=== PATIENT | female | born 1970 | race Two or more races ===

== ENCOUNTER 2017-01-14 16:01 | Emergency (ER) | payer MEDICAID, OTHER ==
[~2017-01-14] VITALS: Ht 154.9 cm; Wt 68.5 kg
[~2017-01-14 16:01] MED LIST: ALBUTEROL SULF8.5 GM INH; AZITHROMYCIN250 MG ORAL; FLAGYL500 MG ORAL; IBUPROFEN600 MG ORAL; LEVAQUIN500 MG ORAL; MEDROL DOSEPAK4 MG ORAL; METRONIDAZOLE500 MG ORAL; NKM; PROMETHAZINE-C118 M1 ORAL
[2017-01-14 16:30] VITALS: BP 175/106
[2017-01-14] MEDS ORDERED: Morphine Sulfate 4mg/ml Inj IVP ONE (16:45)
[2017-01-14] MEDS ORDERED: Ketorolac 30mg Inj IV ONE (16:45)
[2017-01-14 17:07] LABS: APPEARANCE,URINE CLOUDY; KETONES,URINE NEGATIVE (NEGATIVE); LEUKOCYTE ESTERASE ,URINE 1+ (NEGATIVE); NITRITE,URINE NEGATIVE (NEGATIVE); PH,URINE 5 (4.5-8.0); PROTEIN,URINE 2+ (NEGATIVE); UROBILINOGEN,URINE NORMAL MG/DL (0.0-1.0)
[2017-01-14 17:09] LABS: BASOPHILS % (AUTO) 1.2 % (0.0-2.0); EOSINOPHILS % (AUTO) 2.3 % (0.0-3.0); LYMPHOCYTES % (AUTO) 26.5 % (20.0-45.0); MEAN CORPUSCULAR HEMOGLOBIN 30.7 PG (27.0-31.0); MEAN CORPUSCULAR HGB CONC 33.1 G/DL (32.0-36.0); MEAN CORPUSCULAR VOLUME 93 FL (80-99); MEAN PLATELET VOLUME 6.9 FL (6.5-10.1); MONOCYTES % (AUTO) 5.1 % (1.0-10.0); NEUTROPHILS % (AUTO) 64.9 % (45.0-75.0); PLATELET COUNT 437 K/UL (150-450); RED BLOOD COUNT 4.67 M/UL (4.20-5.40); RED CELL DISTRIBUTION WIDTH 12.2 % (11.6-14.8); WHITE BLOOD COUNT 9.3 K/UL (4.8-10.8)
[2017-01-14 17:14] LABS: RBC,URINE 0-2 /HPF (0 - 2)
[2017-01-14 17:15] LABS: BACTERIA,URINE FEW /HPF; SQUAMOUS EPITHELIAL CELL,UR MANY /LPF (NONE/OCC)
[2017-01-14 17:26] LABS: ALANINE AMINOTRANSFERASE 13 U/L (3-33); ALBUMIN/GLOBULIN RATIO 1.5 (1.0-2.7); ANION GAP 13 (5-15); ASPARTATE AMINO TRANSFERASE 15 U/L (5-40); CARBON DIOXIDE 27 mEQ/L (20-30); CHLORIDE 100 mEQ/L (98-107); GLOMERULAR FILTRATION RATE 59.2 mL/min (>60); HEMOLYSIS 1; LIPASE 50 U/L (< 60); POTASSIUM 4.4 mEQ/L (3.4-4.9); SODIUM 140 mEQ/L (135-145); TOTAL PROTEIN 7.6 g/dL (6.6-8.7); TROPONIN I < 0.30 ng/mL (<=0.30)
[2017-01-14 17:36] LABS: CKMB < 1.5 ng/mL (< 3.8)
[2017-01-14] MEDS ORDERED: IBUPROFEN600 MG ORAL (17:52)
[2017-01-14] MEDS ORDERED: ALBUTEROL SULF8.5 GM INH (17:52)
[2017-01-14 17:56] VITALS: BP 177/89
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
--- NOTE | 2017-01-15 09:56 | Diagnostic Imaging Report ---
Indication: Chest pain Technique: One view of the chest Comparison: 05/14/2015 Findings: Lungs and pleural spaces are clear. Heart size is normal. No significant interim change Impression: No acute process
--- NOTE | 2017-01-15 10:01 | Diagnostic Imaging Report ---
Indication: PAIN Technique: Multiple views of the left ribs Comparison: None Findings: No evidence of acute fracture. No gross pneumothorax Impression: Negative
== END 2017-01-14 17:56 | disposition home or self-care (01) ==
LOC: EMR 16:55
DX: R07.81 Pleurodynia (principal); J40 Bronchitis, not specified as acute or chronic; I10 Essential (primary) hypertension; F11.20 Opioid dependence, uncomplicated; Z88.1 Allergy status to other antibiotic agents
CPT/HCPCS: 36415; 71010; 71100; 80053; 81003; 82553; 83690; 84484; 85025; 93005; 96360; 96375; 99284; J1885; J2270; J7040

== ENCOUNTER 2018-02-24 21:42 | Emergency (ER) | payer OTHER ==
[~2018-02-24] VITALS: Ht 154.9 cm; Wt 72.6 kg
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
[2018-02-24] MEDS ORDERED: Ketorolac 30mg Inj IV ONE (22:30)
[2018-02-24] MEDS ORDERED: Ipratropium 0.02% Inh Soln 2.5ml UD HHN ONE (22:30)
[2018-02-24] MEDS ORDERED: Solu-MEDROL 125mg Inj IVP ONE (22:30)
[2018-02-24] MEDS ORDERED: Albuterol ud Inhalation HHN ONE ×2 (22:30→23:00)
[2018-02-24] MEDS ORDERED: Aspirin Baby 81mg ORAL ONE (22:30)
[2018-02-24 22:48] LABS: BILIRUBIN, URINE NEGATIVE (NEGATIVE); GLUCOSE, URINE (UA) NEGATIVE (NEGATIVE); KETONES,URINE NEGATIVE (NEGATIVE); LEUKOCYTE ESTERASE ,URINE 1+ (NEGATIVE); NITRITE,URINE NEGATIVE (NEGATIVE); PH,URINE 7 (4.5-8.0); PROTEIN,URINE 1+ (NEGATIVE); UROBILINOGEN,URINE 1 MG/DL (0.0-1.0)
[2018-02-24 22:50] LABS: BASOPHILS % (AUTO) 1.7 % (0.0-2.0); EOSINOPHILS % (AUTO) 2.9 % (0.0-3.0); HEMATOCRIT 40.5 % (37.0-47.0); HEMOGLOBIN 13.7 G/DL (12.0-16.0); LYMPHOCYTES % (AUTO) 29.1 % (20.0-45.0); MEAN CORPUSCULAR VOLUME 89 FL (80-99); MONOCYTES % (AUTO) 7.9 % (1.0-10.0); NEUTROPHILS % (AUTO) 58.5 % (45.0-75.0); PLATELET COUNT 367 K/UL (150-450); RED BLOOD COUNT 4.54 M/UL (4.20-5.40); RED CELL DISTRIBUTION WIDTH 11.8 % (11.6-14.8); WHITE BLOOD COUNT 7.6 K/UL (4.8-10.8)
[2018-02-24 22:52] LABS: ANION GAP 8 mmol/L (5-15); BLOOD UREA NITROGEN 16 mg/dL (7-18); CARBON DIOXIDE 29 MMOL/L (21-32); CHLORIDE 103 MMOL/L (98-107); CREATININE 0.7 MG/DL (0.55-1.30); POTASSIUM 3.8 MMOL/L (3.5-5.1); SODIUM 140 MMOL/L (136-145)
[2018-02-24 23:05] LABS: ALANINE AMINOTRANSFERASE 32 U/L (12-78); ALBUMIN 3.8 G/DL (3.4-5.0); ALBUMIN/GLOBULIN RATIO 0.9 (1.0-2.7); ALKALINE PHOSPHATASE 69 U/L (46-116); APPEARANCE,URINE SLIGHTLY CLOUDY; ASPARTATE AMINO TRANSFERASE 20 U/L (15-37); BILIRUBIN,TOTAL 0.2 MG/DL (0.2-1.0); CKMB 0.9 NG/ML (0.0-3.6); COLOR,URINE YELLOW; CREATINE KINASE 110 U/L (26-308)
[2018-02-24] MEDS ORDERED: cefTRIAXone 1 GM in NS 55 ML IVPB ONE (23:45)
[2018-02-24] MEDS ORDERED: ZITHROMAX250 MG ORAL (23:51)
[2018-02-24] MEDS ORDERED: IBUPROFEN600 MG ORAL (23:51)
[2018-02-24] MEDS ORDERED: PREDNISONE20 MG ORAL (23:51)
[2018-02-24] MEDS ORDERED: ALBUTEROL SULF8.5 GM INH (23:51)
[2018-02-25] VITALS: BP 141/85
[2018-02-25 00:25] VITALS: BP 141/85
--- NOTE | 2018-02-25 09:20 | Diagnostic Imaging Report ---
Indication: Chest pain Comparison: 01/14/2017 A single view chest radiograph was obtained. Findings: Cardiomediastinal appearance is within normal limits for age. The lungs are clear. Pulmonary vascularity is appropriate. The diaphragmatic contour is smooth and costophrenic angles are sharp. No pleural effusions are identified. The bones are unremarkable. Impression: No acute findings
--- NOTE | 2018-02-27 15:19 | Cardiology Report ---
APPROVED REPORT EKG Measurement Heart [id number] Normal sinus rhythm Possible Left atrial enlargement Borderline ECG
== END 2018-02-25 00:26 | disposition home or self-care (01) ==
LOC: EMR 22:23
DX: R07.9 Chest pain, unspecified (principal); J44.1 Chronic obstructive pulmonary disease with (acute) exacerbation; N39.0 Urinary tract infection, site not specified; I10 Essential (primary) hypertension; F17.200 Nicotine dependence, unspecified, uncomplicated; F11.20 Opioid dependence, uncomplicated; Z88.1 Allergy status to other antibiotic agents
CPT/HCPCS: 36415; 71045; 80053; 80307; 81003; 81025; 82550; 82553; 83880; 84484; 85025; 87086; 93005; 94640; 96361; 96365; 96375; 99284; J0696; J1885; J2930

== ENCOUNTER 2018-10-10 19:49 | Emergency (ER) | payer OTHER ==
[~2018-10-10] VITALS: Ht 154.9 cm; Wt 79.4 kg
[~2018-10-10 19:49] MED LIST changes: +PREDNISONE20 MG ORAL; +ZITHROMAX250 MG ORAL
--- NOTE | 2018-10-10 19:50 | NUR ---
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 patient is alert and oriented x4, ambulatory with a steady gait, VVSS
[2018-10-10 20:00] VITALS: BP 184/97
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
[2018-10-10] MEDS ORDERED: IBUPROFEN600 MG ORAL (20:23)
[2018-10-10] MEDS ORDERED: BACTRIM 400-801 EACH ORAL (20:23)
[2018-10-10 20:40] VITALS: BP 167/90
--- NOTE | 2018-10-10 20:40 | NUR ---
ER DISCHARGE NOTE: Patient is cleared to be discharged per ERMD, pt is aox4, on room air, with stable vital signs. pt was given dc and prescription instructions, pt was able to verbalize understanding, pt id band removed without complications. pt is able to ambulate with steady gait. pt took all belongings.
--- NOTE | 2018-10-11 12:38 | Diagnostic Imaging Report ---
Indication: Pain index finger Comparison: None Findings: 3 views of the second digit right hand obtained. No acute fracture or malalignment identified. Narrowing and osteophyte formation of involving the distal interphalangeal joint noted. Soft tissues are unremarkable. IMPRESSION: No acute injury identified. Arthritis of the DIP joint
== END 2018-10-10 20:40 | disposition home or self-care (01) ==
LOC: EMR 20:33
DX: L03.012 Cellulitis of left finger (principal); Z88.8 Allergy status to other drugs, medicaments and biological substances; I10 Essential (primary) hypertension
CPT/HCPCS: 99283

== ENCOUNTER 2019-01-14 19:28 | Emergency (ER) | payer OTHER ==
[~2019-01-14] VITALS: Ht 152.4 cm; Wt 81.6 kg
[~2019-01-14 19:28] MED LIST changes: +BACITRACIN15 GM TOPIC; +BACTRIM 400-801 EACH ORAL; +BACTRIM DS TAB1 EAC1 ORAL; +TRAMADOL HCL50 MG ORAL
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
[2019-01-14] MEDS ORDERED: Ketorolac 30mg Inj ONE (20:00)
[2019-01-14] MEDS ORDERED: Ketorolac 30mg Inj IM ONE (20:00)
--- NOTE | 2019-01-14 20:21 | NUR ---
ED Nurse Note: Xray done at bedside.
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
[2019-01-14] MEDS ORDERED: IBUPROFEN600 MG ORAL (20:36)
[2019-01-14] MEDS ORDERED: TYLENOL EXTRA500 MG ORAL (20:36)
[2019-01-14] MEDS ORDERED: BACTRIM DS TAB1 EAC1 ORAL (20:36)
[2019-01-14 20:54] VITALS: BP 176/95
--- NOTE | 2019-01-14 20:54 | NUR ---
ED Nurse Note: Pt cleared by ERMD for discharge. DC instructions/prescription was given and explained to pt and verbalized understanding of teachings. All medical deviecs such as ID band removed. Pt is AAO x4, ambulatory and left with all personal belongings.
== END 2019-01-14 20:54 | disposition home or self-care (01) ==
LOC: EMR 20:19
DX: S80.212A Abrasion, left knee, initial encounter (principal); Z88.1 Allergy status to other antibiotic agents; I10 Essential (primary) hypertension; L08.9 Local infection of the skin and subcutaneous tissue, unspecified; Y04.8XXA Assault by other bodily force, initial encounter; Y92.9 Unspecified place or not applicable
CPT/HCPCS: 73562; 96372; Z7502; 99283

== ENCOUNTER 2019-01-18 18:55 | Emergency (ER) | payer OTHER ==
[~2019-01-18] VITALS: Ht 152.4 cm; Wt 81.6 kg
[~2019-01-18 18:55] MED LIST changes: +TYLENOL EXTRA500 MG ORAL
[2019-01-18 19:14] VITALS: BP 151/85
--- NOTE | 2019-01-18 19:15 | NUR ---
ED Nurse Note: PATIENT WALKED IN TO ER C/O WORSENING OF INFECTED LEFT LEG. PATIENT SEEN AT [facility] [place] ER 01/16/19. PT C/O INCREASING PAIN AND INCREASED BRUISING SINCE LAST VISIT. STATED THAT SHE HAS BEEN COMPLIANT WITH ALL MEDICATIONS PRESCRIBED. AAO X4, VSS AT THIS TIME.
[2019-01-18] MEDS ORDERED: CLINDAMYCIN HC300 MG ORAL (21:10)
[2019-01-18 21:15] VITALS: BP 151/85
--- NOTE | 2019-01-18 21:15 | NUR ---
ED Nurse Note: Pt cleared by health care Provider for discharge. DC instructions/prescription was given and explained to pt and verbalized understanding of teachings. All medical deviecs such as ID band removed. Pt is AAO x4, ambulatory and left with all personal belongings.
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
== END 2019-01-18 21:15 | disposition home or self-care (01) ==
LOC: EMR 19:28
DX: S86.112A Strain of other muscle(s) and tendon(s) of posterior muscle group at lower leg level, left leg, initial encounter (principal); F11.20 Opioid dependence, uncomplicated; I10 Essential (primary) hypertension; Z88.1 Allergy status to other antibiotic agents; X58.XXXA Exposure to other specified factors, initial encounter; Y92.9 Unspecified place or not applicable
CPT/HCPCS: 93971; Z7502; 99284

== ENCOUNTER 2019-01-28 04:53 | Emergency (ER) | payer OTHER ==
[~2019-01-28] VITALS: Ht 154.9 cm; Wt 81.6 kg
[~2019-01-28 04:53] MED LIST changes: +CLINDAMYCIN HC300 MG ORAL
[2019-01-28 05:06] VITALS: BP 170/83
--- NOTE | 2019-01-28 05:06 | NUR ---
ED Nurse Note: Patient walked in to ER due to SOB, flu like symptoms since yesterday ago. As per patient, she vomited couple of times upon arrival to ER. Has hx of asthma, HTN. alert and oriented, verbally responsive. Afebrile. VSS.
--- NOTE | 2019-01-28 05:10 | NUR ---
ED Nurse Note: Xray done at bedside.
[2019-01-28] MEDS ORDERED: Albuterol ud Inhalation HHN ONE (05:15)
[2019-01-28] MEDS ORDERED: Ipratropium 0.02% Inh Soln 2.5ml UD HHN ONE (05:15)
--- NOTE | 2019-01-28 05:15 | NUR ---
ED Nurse Note: Breathing tx provided by RT at bedside.
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
[2019-01-28] MEDS ORDERED: MEDROL DOSEPAK4 MG ORAL (05:22)
[2019-01-28] MEDS ORDERED: ALBUTEROL SULF8.5 GM INH (05:22)
[2019-01-28] MEDS ORDERED: ROBITUSSIN COU237 M2 PO (05:23)
[2019-01-28 05:32] VITALS: BP 170/83
--- NOTE | 2019-01-28 05:32 | NUR ---
ED Nurse Note: Pt cleared by ERMD for discharge. DC instructions/prescription was given and explained to pt and verbalized understanding of teachings. All medical devices such as ID band removed. Pt is AAO x4, ambulatory and left with all personal belongings. Accompanied by son.
--- NOTE | 2019-01-28 11:04 | Diagnostic Imaging Report ---
Indication: Dyspnea Comparison: 02/24/2018 A single view chest radiograph was obtained. Findings: Cardiomediastinal appearance is within normal limits for age. The lungs are clear. Pulmonary vascularity is appropriate. The diaphragmatic contour is smooth and costophrenic angles are sharp. No pleural effusions are identified. The bones are unremarkable. Impression: No acute findings
== END 2019-01-28 05:32 | disposition home or self-care (01) ==
LOC: EMR 05:15
DX: J40 Bronchitis, not specified as acute or chronic (principal); J06.9 Acute upper respiratory infection, unspecified; I10 Essential (primary) hypertension; J45.909 Unspecified asthma, uncomplicated; Z88.1 Allergy status to other antibiotic agents
CPT/HCPCS: 71045; 94640; 94664; Z7502; 99283

== ENCOUNTER 2019-01-28 07:37 | Emergency (ER) | payer OTHER ==
[~2019-01-28] VITALS: Ht 154.9 cm; Wt 81.6 kg
[~2019-01-28 07:37] MED LIST changes: +ROBITUSSIN COU237 M2 PO
--- NOTE | 2019-01-28 07:45 | NUR ---
ED Nurse Note: Patient walked into ED c/o shakiness that started after taking the medications she was prescribed. patient was just discharged here earlier at around 6am. patient complains of 5/10 generalized body accompanied by SOB. o2 sat 100% at time of arrival, patient placed on a registered nurse cardiac telemetry. Side rails up, will continue to monitor
[2019-01-28 07:51] VITALS: BP 174/92
[2019-01-28] MEDS ORDERED: Levalbuterol Inh UD 1.25mg/0.5ml HHN ONE (08:00)
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
[2019-01-28 09:03] VITALS: BP 142/88
--- NOTE | 2019-01-28 09:03 | NUR ---
ER DISCHARGE NOTE: Patient is cleared to be discharged per ERMD, pt is aox4, on room air, with stable vital signs. pt was given dc instructions, pt was able to verbalize understanding, pt id band and emoved without complications. pt is able to ambulate with steady gait. pt took all belongings.
--- NOTE | 2019-01-29 17:17 | Cardiology Report ---
APPROVED REPORT EKG Measurement Heart [id number] CT [id number] [id number] Normal sinus rhythm Normal ECG
== END 2019-01-28 09:04 | disposition home or self-care (01) ==
LOC: EMR 08:10
DX: J40 Bronchitis, not specified as acute or chronic (principal); Z88.1 Allergy status to other antibiotic agents; I10 Essential (primary) hypertension; J45.909 Unspecified asthma, uncomplicated
CPT/HCPCS: 93005; 94640; 94664; J7512; J7644; Z7502; 99283

== ENCOUNTER 2019-12-11 19:47 | Emergency (ER) | payer OTHER ==
[~2019-12-11] VITALS: Ht 157.5 cm; Wt 77.1 kg
[2019-12-11 20:13] VITALS: BP 170/83
--- NOTE | 2019-12-11 20:15 | NUR ---
ED Nurse Note: Insect bites on bilateral ankles, started 12 days ago, unknown insect.
[2019-12-11] MEDS ORDERED: RANITIDINE HCL150 MG ORAL (20:23)
[2019-12-11] MEDS ORDERED: DOXYCYCLINE MO100 MG ORAL (20:23)
[2019-12-11] MEDS ORDERED: HYDROCORTISONE28 G2 TP (20:23)
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
[2019-12-11 20:33] VITALS: BP 170/83
== END 2019-12-11 20:33 | disposition home or self-care (01) ==
LOC: EMR 20:07
DX: R21 Rash and other nonspecific skin eruption (principal); L29.9 Pruritus, unspecified; I10 Essential (primary) hypertension; Z88.8 Allergy status to other drugs, medicaments and biological substances
CPT/HCPCS: 99282

== ENCOUNTER → 2020-05-10 | Outpatient (CLI) | payer MEDICAID ==
[~2020-05-10] VITALS: Ht 160 cm; Wt 78.9 kg
[~2020-05-10] MED LIST changes: +AMLODIPINE BESY10 MG ORAL; +DOXYCYCLINE MO100 MG ORAL; +HYDROCHLOROTHIA50 MG ORAL; +HYDROCORTISONE28 G2 TP; +LOSARTAN POTASS50 MG ORAL; +RANITIDINE HCL150 MG ORAL
[2020-05-10 13:09] VITALS: BP 159/100
--- NOTE | 2020-05-12 01:45 | Consultation ---
DATE OF CONSULTATION: 05/10/2020 CONSULTING PHYSICIAN: Andrew Saleem MD CHIEF COMPLAINT: Solid dysphagia. HISTORY OF PRESENT ILLNESS: This is a 50-year-old female with complaint of reflux disease, presents now with complaint of solid dysphagia. PAST MEDICAL HISTORY: Hypertension. PAST SURGICAL HISTORY: , fibroid surgery, left knee surgery. MEDICATIONS: Please see medication reconciliation list. FAMILY HISTORY: Noncontributory. SOCIAL HISTORY: The patient denies any alcohol, but she is a smoker, one pack per day. ALLERGIES: Keflex. REVIEW OF SYSTEMS: Positive for severe GERD and solid dysphagia. PHYSICAL EXAMINATION: VITAL SIGNS: Temperature 97.9, blood pressure 159/100, pulse 69, and respirations 20. HEENT: Normocephalic and atraumatic. Sclerae are anicteric. NECK: Supple. No evidence of obvious lymphadenopathy. CARDIAC: Regular rate and rhythm. Plus S1-S2. LUNGS: Clear to auscultation bilaterally. ABDOMEN: Positive bowel sounds. Soft and nontender. No rebound. No guarding. No peritoneal sign. EXTREMITIES: No cyanosis, no clubbing, no edema. ASSESSMENT: This is a 50-year-old female, smoker with severe solid dysphagia. PLAN: the patient on omeprazole 40 mg twice a day. The patient needs to have endoscopy for evaluation to rule out malignancy. Andrew Saleem M.D. DR: MARCIE JOB#: [id number] CC:
== END | disposition home or self-care (01) ==
LOC: PAN 12:50
DX: R13.10 Dysphagia, unspecified (principal); I10 Essential (primary) hypertension; K21.9 Gastro-esophageal reflux disease without esophagitis; Z87.891 Personal history of nicotine dependence